=== PATIENT | female | born 1990 | race Caucasian/White ===

== ENCOUNTER → 2019-07-31 11:19 | Outpatient (CLI) | payer SELFPAY ==
[2016-08-07 05:40] VITALS: BMI 24.5
[2019-08-05 16:49] LABS: HPV APTIMA, High Risk Negative (Negative)
== END ==
PROVIDERS: Family Provider Family Medicine; PCP Family Medicine; Visit Provider Obstetrics & Gynecology
DX: Z12.4 Encounter for screening for malignant neoplasm of cervix (principal)
CPT/HCPCS: 87624; 88175; G0145

== ENCOUNTER → 2019-10-17 13:23 | Outpatient (CLI) | payer SELFPAY ==
[2019-10-17 19:35] LABS: Chlamydia Trachomatis by PCR Negative (Negative); Neisserai gonorrhoeae by PCR Negative (Negative); Probe Check PASS; Sample Adequacy Control PASS; Specimen Processing Control PASS
== END ==
PROVIDERS: Visit Provider Obstetrics & Gynecology
DX: Z11.3 Encounter for screening for infections with a predominantly sexual mode of transmission (principal)
CPT/HCPCS: 87491; 87591

== ENCOUNTER → 2019-11-20 10:37 | Outpatient (CLI) | payer SELFPAY ==
[2016-08-07 05:40] VITALS: BMI 24.5
[2019-11-20 10:58] LABS: Absolute Lymphocyte Count 1.97 X10^3/uL (0.83-4.51); Absolute Neutrophil Count 7.2 X10^3/uL (2.0-7.7); Basophil# 0.03 X10^3/uL; Basophil% 0.3 % (0-1); Eosinophil# 0.11 X10^3/uL; Eosinophils% 1.1 % (0-5); Hematocrit 36.1 % (37-47); Hemoglobin 12.7 g/dL (12.0-15.0); Lymphocyte # 1.97 X10^3/ul (4.0); Lymphocyte % 19.8 % (19-41); Mean Corp Hgb Conc 35.2 g/dL (32-36); Mean Corpuscular Hgb 32.7 pg (27.0-32.0); Mean Platelet Vol. 8.8 fl (6.2-12.0); Monocyte# 0.61 X10^3/uL; Monocyte% 6.1 % (0-10); NRBC Flagged by Analyzer 0 % (0-5); Neutrophil # 7.19 X10^3/uL (2.7-7.7); Neutrophil % 72.1 % (47-70); Platelet Count 262 K/mm3 (150-450); RBC Distribution Width CV 12.8 % (11.6-14.6); RBC Distribution Width SD 43.7 fl (35.1-43.9); Red Blood Count 3.88 M/mm3 (4.2-5.4)
[2019-11-20 11:04] LABS: Color, Urine Yellow (Yellow); Glucose, Dipstick Normal (Normal); Ketone-Dipstick Negative (Negative); Leukocyte Esterase-Dipstick 500 /ul (Negative); Nitrite-Dipstick Negative (Negative); Occult Blood-Urine Negative /ul (Negative); Protein-Dipstick Negative (Negative); Urine Bilirubin Dipstick Negative (Negative); Urine Clarity Sl. Cloudy (Clear); Urine Urobilinogen Normal (Normal)
[2019-11-20 11:11] LABS: Amphetamine Urine VISTA NEGATIVE (<1000 ng/mL); Barbiturate Urine VISTA NEGATIVE (< 200 ng/mL); Benzodiazepine Urine VISTA NEGATIVE (< 200 ng/mL); Cocaine Urine VISTA NEGATIVE (< 300 ng/mL); Ecstacy Urine VISTA NEGATIVE (< 500 ng/mL); Methadone Urine VISTA NEGATIVE (< 300 ng/mL); PCP Urine VISTA NEGATIVE (< 25 ng/mL); THC Urine VISTA NEGATIVE (< 50 ng/mL); Vista UDS pH Range 6
[2019-11-20 11:35] LABS: Thyroid Stim Hormone (TSH) 1.56 uIU/mL (0.358-3.74)
[2019-11-20 16:15] LABS: HIV - WCH Non-Reactive (Nonreactive); Hepatitis B Surface Antigen Non-Reactive (Nonreactive); Hepatitis C Antibody Non-Reactive (Nonreactive)
[2019-11-27 02:55] LABS: Prenatal RPR NONREACTIVE (NONREACTIVE)
== END ==
PROVIDERS: Visit Provider Obstetrics & Gynecology
DX: Z34.82 Encounter for supervision of other normal pregnancy, second trimester (principal)
CPT/HCPCS: 36415; 80307; 81002; 82306; 84443; 85025; 86703; 86762; 86803; 87340

== ENCOUNTER → 2020-01-06 13:53 | Outpatient (CLI) | payer SELFPAY ==
[2016-08-07 05:40] VITALS: BMI 24.5
[2020-01-06 13:59] LABS: Mucous, Urine 0 SEEN /hpf (<or=2+); Red Blood Cells-Urine 0 SEEN /hpf (0-5)
[2020-01-06 14:51] LABS: Color, Urine Yellow (Yellow); Glucose, Dipstick Normal (Normal); Ketone-Dipstick Negative (Negative); Leukocyte Esterase-Dipstick 500 /ul (Negative); Nitrite-Dipstick Negative (Negative); Occult Blood-Urine Negative /ul (Negative); Protein-Dipstick Negative (Negative); Urine Bilirubin Dipstick Negative (Negative); Urine Clarity Clear (Clear); Urine Urobilinogen Normal (Normal)
[2020-01-06 15:00] LABS: Bacteria 1+ /hpf (None Seen); Squamous Epithelial Cells - UA 0-5 SEEN /hpf (5-10); White Blood Cells 0-5 SEEN /hpf (0-5)
[2020-01-06 16:47] LABS: Chlamydia Trachomatis by PCR Negative (Negative); Neisserai gonorrhoeae by PCR Negative (Negative); Probe Check PASS; Sample Adequacy Control PASS; Specimen Processing Control PASS
== END ==
PROVIDERS: Referring Provider Obstetrics & Gynecology; Visit Provider Obstetrics & Gynecology
DX: Z34.82 Encounter for supervision of other normal pregnancy, second trimester (principal); Z87.440 Personal history of urinary (tract) infections
CPT/HCPCS: 81001; 87491; 87591

== ENCOUNTER → 2020-01-27 14:57 | Outpatient (CLI) | payer SELFPAY ==
[2016-08-07 05:40] VITALS: BMI 24.5
[2020-01-27 15:44] LABS: Hematocrit 34.8 % (37-47); Mean Corp Hgb Conc 34.5 g/dL (32-36); Mean Corpuscular Hgb 33.2 pg (27.0-32.0); Mean Corpuscular Volume 96.4 fL (81-99); Mean Platelet Vol. 9.4 fl (6.2-12.0); Platelet Count 264 K/mm3 (150-450); RBC Distribution Width CV 12.6 % (11.6-14.6); RBC Distribution Width SD 43.9 fl (35.1-43.9); Red Blood Count 3.61 M/mm3 (4.2-5.4); White Blood Count 12.3 K/mm3 (4.4-11.0)
[2020-01-27 15:54] LABS: Glucose Challenge Gest 1H 50g 119 mg/dL (70-140)
[2020-01-27 16:02] LABS: Vitamin D,25 Hydroxy 47.4 ng/mL
== END ==
PROVIDERS: Visit Provider Obstetrics & Gynecology
DX: Z34.82 Encounter for supervision of other normal pregnancy, second trimester (principal); E55.9 Vitamin D deficiency, unspecified
CPT/HCPCS: 82306; 82950; 85027

== ENCOUNTER 2020-04-07 21:31 | Inpatient (IN) | payer SELFPAY ==
[2016-08-07 05:40] VITALS: BMI 24.5
[2020-04-07 20:07] VITALS: BMI 24.4
[2020-04-07 20:09] VITALS: BP 106/71; PULSE 77
[2020-04-07] MEDS: Lactated Ringers 1,000 ML 999 ML IV (20:40)
[2020-04-07 21:05] LABS: Absolute Lymphocyte Count 1.71 X10^3/uL (0.83-4.51); Absolute Neutrophil Count 8.5 X10^3/uL (2.0-7.7); Basophil# 0.03 X10^3/uL; Basophil% 0.3 % (0-1); Eosinophil# 0.12 X10^3/uL; Eosinophils% 1.1 % (0-5); Hematocrit 34.6 % (37-47); Hemoglobin 12.1 g/dL (12.0-15.0); Lymphocyte # 1.71 X10^3/ul (4.0); Lymphocyte % 15.4 % (19-41); Mean Corpuscular Volume 97.2 fL (81-99); Mean Platelet Vol. 9.9 fl (6.2-12.0); Monocyte% 6.3 % (0-10); NRBC Flagged by Analyzer 0 % (0-5); Neutrophil # 8.47 X10^3/uL (2.7-7.7); Neutrophil % 76.1 % (47-70); Platelet Count 207 K/mm3 (150-450); RBC Distribution Width CV 12.6 % (11.6-14.6); RBC Distribution Width SD 45.1 fl (35.1-43.9); Red Blood Count 3.56 M/mm3 (4.2-5.4); White Blood Count 11.1 K/mm3 (4.4-11.0)
[2020-04-07 21:35] LABS: Group B Strep DNA By PCR Negative (Negative); Internal Control PASS; Probe Check PASS; Specimen Processing Control PASS
[2020-04-07 21:36] VITALS: BP 115/74; PULSE 81
[2020-04-07 21:47] VITALS: PULSE 79; O2SAT 98
[2020-04-07] MEDS: Sodium Citrate/Citric Acid 30 ML UDC PO (21:50)
--- NOTE | 2020-04-07 22:09 | HP.PCM_ITS ---
History and Physical Date of Admission: 04/07/20 OG ANTEPARTUM RECORD - HISTORY AND PHYSICAL (04/07/2020) Name: DEANA STONE History of This : This is a 29-year-old G3, P2 who presents to labor and delivery in active labor. She is approximately 35+ weeks gestation and had a prior section. OB Physician: OANH [place]'s Physician: Dr. Airam Dewitt ...................................................................... : 1990 Age: 29 Address: [address] [place] [address] Phone: H) [phone] Insurance Carrier: Emergency Contact: MILEY ALFREDO [phone] ...................................................................... Final SATHYA: 05/08/20 By Ultrasound: 10 weeks 6 days, 10 PARITY: (G-Total Pregnancies P-Fullterm,Premature,Induced AB,Spont AB, Ectopics, Multiple,Living) SATHYA CONFIRMATION: By LMP: 08/02/19 Initial Exam: 05/08/20 By First Ultrasound Exam: 05/08/20 Final SATHYA: 05/08/20 OB PROBLEM LIST: Cephalexin started for infected cut Declines msAFP and CF testing EPDS = 9 Mild MVP Prior C/S, plans repeat C/S at 39 weeks Recent new onset of migraine headaches ALLERGIES: NKDA MEDICATIONS: 27 mg-0.8 mg tablet One pill by mouth once a day promethazine 12.5 mg tablet 1 q 3 hrs prn nausea SOCIAL HISTORY: Smoking - Never Alcohol Use - denies drinking Diet - balanced Diet Lifestyle - low stress lifestyle and Exercise - regular 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 [place] Spouse-Sig Other Name - Miley Stone Spouse-Sig Other Occupation - [employer] Nurse Spouse-Sig Other Phone No - [phone] Children Name(s) - Rivera ALANIZ), PRIOR DELIVERY HISTORY DEL DATE GEST LAB WT LB WT OZ TYPE ANES LABOR TX 04 Feb 14 40 23 9 3 C-Sec Epidural yes 26 Sep 16 39 0 7 3 C-Sec Spinal No ANTEPARTUM FLOW CHART VISIT GE RTC FU F F IL U U DATE WK MD WKS HT PN HR M SS BP ED WT IL GL D EF ST __ ____ ___ __ __ ___ __ __ __ ___ __ __ __ ___ __ March SHM 1 34 V + + 100/58 0 156 tr - March SHM 2 33 V + + 102/72 0 154 tr - Feb SHM 2 31 ? + + 92/64 0 152 - - Feb 03 SHM 4 25 + + 90/62 0 146 ne 1+ 25 Jan 03 SHM 2 22 ? + + 116/64 0 144 - - Nov 26 SHM 2 + + 82/64 0 139 - - ANTEPARTUM NOTE(S): Apr 06 2020: increased discomforts Mar 23 2020: Reviewed FM, PTL, Tdap Mar 09 2020: see note Jan 27 2020: GCT drawn today Jan 06 2020: see note Nov 20 2019: see note COMPREHENSIVE ANTEPARTUM NOTE(S): Mar 23 2020: Discussed Tdap. Reviewed [facility] visitor policy due to COVID19 pandemic. Plans to start packing for hospital soon. Feels this baby is as big as her first one (>9lb). Desires to proceed with tubal sterilization at time of C/S. Reviewed failure rate, irreversibility, availability of reversible contraceptive alternatives and risk for tubal . Pt reports understanding. Mar 09 2020: Ira is here for a PNV. She is doing well, no compplaints or concerns expressed. Good FM. No edema. MK Jan 27 2020: Ira is here for visit. She is doing well, no complaints. Labs drawn today. Ok with spacing appt at this time. LMT Jan 06 2020: Ira is her for a PNV. She is doing well. She reports hot, painful, swollen veins in her right leg that started 4-6 weeks ago. Other than that she has no complaints. Good FM. Glucola given and reviewed for next appt. Waiting to find out gender of the baby. Urine - -. MK Jan 06 2020: Discussed sleep position, movement. Anatomy scan heart views completed today. AGA. hx RLE varicosities, si/sx clot or phlebitis reviewed. Nov 20 2019: Daena is here for a appt. She is feeling well. Some mild nausea. She thought she felt some small movements last night. Urine --. MK Nov 20 2019: Anatomy completed today, limited heart views, otherwise wnl. Mild headache intermittently and nausea. Nov 20 2019: Ira is here at 15 w 5 d for her NOB visit, she is a with an SATHYA of 05/08/2020. She and her , Miley, have two children at home, both of whom were delivered by C/S. Past history updated. Delivery by R C/S at [facility] is planned, and at this time she is undecided about feeding method. Ira is an established patient, and is aware of office practice patterns, including labs that will be collected today. Emergencies/danger signs to report, round ligament pain, contacting the office after hours, and common OTC medications approved/not approved for use during reviewed. She reports intermittent nausea, no vomiting. She takes an OTC vitamin that contained DHA and she states that she tolerates this well. Small frequent meals with protein included throughout the day and adequate water hydration of at least one gallon per 24 hours recommended. She has been taking Promethazine for nausea as prescribed, but does not feel that is has been working well. Discussed trying Vitamin B6 50 mg twice a day and Unisom at bedtime, she states that she may try this. Ira also shares that she has been getting migraine headaches, and that this is new for her; she states that she notes migraines mostly behind my right eye. She reports that she was started on Cephalexin yesterday for infected cut on her ankle (500 mg TID). Ira is a non-smoker, and denies use of drugs or ETOH. Genetic Screening form completed. MSAFP and CF testing declined, consent signed as such. States that she has experienced some depression and anxiety, but that she is doing well and that they have a family counselor that they see as needed and this is is helpful. EPDS = 9 today. Water and dietary needs in reinforced, as well as caloric needs, recommended weight gain, limiting empty calories and limiting caffeine to one cup a day. Printed guide for food safety during provided with review. Reviewed lifting restrictions, exercise guidelines, and Kegel exercises. Ira states that she understands all information provided during NOB visit, and has no questions following same. AW New Oct 21 2019: GC and chlamydia NEG EB Oct 17 2019: Ira is here for missed menses appt She relates LMP of 9/21, +UPT today in office, approx EDC 05/11/20. She is having mild nausea and would like Rx to have on hand. She plans R C/S as 2 prior C/S. Has colds at her house and reviewed OTC meds for all mild discomforts. Educational materials are provided and reviewed. Pap is current. LMT Oct 17 2019: as above. Plans travel to [place] next month. [facility] Jul 31 2019: Ira is here today for her annual appointment. Patient states that she has been doing well. SHe states that she has regular monthly menses except for last month she was about 9 days late. Patient states that she and are not using anything for control at this time as they are attempting . Patient is taking vitamin. Patient has h/o normal pap's with most recent pap in 2014. Patient is due for pap at today's visit. Patient completed depression screening with score of 2. Patient denies any other questions or concerns at this time. [facility] Jul 31 2019: as above. Plans trip to [place] in November. Continue running regularly, weight lifting. Reports single menses 9 days late with negative home UPTs. [facility] REVIEW OF SYSTEMS: GENERAL - Denies fever, or chills SKIN - Denies rash, new skin lesions, or change in moles EYES - Denies blurred vision, or change in visual acuity EARS - Denies ear pain, or difficulty hearing NOSE - Denies nasal congestion, discharge, or bleeding MOUTH - Denies sore throat, or difficulty swallowing NECK - Denies pain or swelling RESPIRATORY - Denies shortness of breath, cough, wheezing CARDIOVASCULAR - Denies palpitations, chest pain, orthopnea, PND, peripheral edema, syncope or claudication GASTROINTESTINAL - Denies nausea, vomiting, diarrhea, constipation, Denies abdominal pain, melena and or bright red blood GENITOURINARY - Denies dysuria, frequency of urination, urgency, or hesitancy MUSCULOSKELETAL - Denies joint or muscle pain, or back pain NEUROLOGICAL - Denies localized numbness, weakness, or tingling PSYCHIATRIC - Denies depression, anxiety, substance abuse or suicide attempts ENDOCRINE - Denies heat or cold intolerance, weight loss or gain, increasing thirst HEMATO-IMMUNOLOGIC - Denies easy bruising, bleeding, oral ulcerations or recurrent infections GENETICS SCREENING: Age 35+ years: No Thalassemia: No Neural Tube Defect: No Down Syndrome: No MOUNIKA-SACHS: No Sickle Cell Disease: No Hemophilia: No Musc. Dystrophy: No Cystic Fibrosis: No-declines screening [place] Chorea: No Mental Retardation: No Fragile X: No Other genetic: No Other defects: No SABs/still births: No Drugs since LMP: No INFECTION HISTORY: High risk AIDS: No High risk Hepatitis: No Exposed to TB: No Exposed to Herpes: No Rash/viral illness since LMP: No History of STD: No MENSTRUAL HISTORY: *Menses Amount/Duration: 3-4 daysMenses Regularity: regularFrequency: monthlyMenarche (Age Onset): 12* PAST SUMMARY: PARITY: 1. Total Pregnancies............ 3 2. Full Term Pregnancies........ 2 3. Premature.................... 0 4. Abortions - Induced.......... 0 5. Abortions - Spontaneous...... 0 6. Ectopics..................... 0 7. Multiple Births.............. 0 8. Living Children.............. 2 PAST #1: Date of :.................. 02/13/14 Gestation Weeks:................ 40 Length of labor(hours):......... 23 Sex:............................ M Weight-lbs:............... 9 Weight-oz:................ 3 Type of Delivery:............... C-Sect Type of Anesthesia:............. Epidural Place of Delivery:.............. [place] Treatment of Labor?:.... yes Comment: MACROSOMIA PAST #2: Date of :.................. 08/07/16 Gestation Weeks:................ 39 Length of labor(hours):......... 0 Sex:............................ F Weight-lbs:............... 7 Weight-oz:................ 3 Type of Delivery:............... C-Sect Type of Anesthesia:............. Spinal Place of Delivery:.............. [place] Treatment of Labor?:.... No Comment: PHYSICAL EXAMINATION General Appearence: 29 yo female in no acute distress Vital Signs: AF, VSS Heart: RRR without rubs or gallops Lungs: CTA x 2 Breasts: deferred Abdomen: gravid Pelvis: Cervix: 6/90 bag of water intact Presentation: cephalic Station: 0 station Fetus: Size: AGA Movement: present Heart: present Labs for : DEANA STONE since 08/12/2019 ORDER DATEIN DESCRIPTION VALUE UNITS RANGE A+ COMMENT VITAMIN D,25 HYDROXY 01/27/20 NOTE Original Ordering Provider: Lorraine Rosado VITAMIN D 25-OH 47.4 ng/mL Vitamin D 25(OH) Status Range Deficiency <20 ng/mL (50nmol/L) Insufficiency 20 - 30 ng/mL (50 - 75 nmol/L) Sufficiency 30 - 100 ng/mL (75 - 250 nmol/L) Toxicity >100 ng/mL (>250 nmol/L) Reviewed by [facility] GLUCOSE CHALLENGE GEST 1H 50G 01/27/20 NOTE Original Ordering Provider: Lorraine Rosado GLU GEST 50G 1H 119 mg/dL 70-140 Reviewed by [facility] CBC-COMPLETE BLOOD CNT NO DIFF 01/27/20 NOTE Original Ordering Provider: Lorraine Rosado WBC 12.3 K/mm3 4.4-11.0 H RBC 3.61 M/mm3 4.2-5.4 L HGB 12.0 g/dL 12.0-15.0 HCT 34.8 % 37-47 L MCV 96.4 fL 81-99 MCH 33.2 pg 27.0-32.0 H MCHC 34.5 g/dL 32-36 RDW CV 12.6 % 11.6-14.6 RDW SD 43.9 fl 35.1-43.9 PLT 264 K/mm3 150-450 MPV 9.4 fl 6.2-12.0 Reviewed by [facility] CT/NG WCH BY PCR 01/06/20 NOTE Original Ordering Provider: Lorraine Rosado CHLAM TRAC PCR Negative Negative NG BY PCR Negative Negative Reviewed by [facility] URINALYSIS, COMPLETE 01/06/20 NOTE Original Ordering Provider: Lorraine Rosado COLOR Yellow Yellow CLARITY Clear Clear GLUCOSE, UR Normal mg/dl Normal BILIRUBIN URINE Negative mg/dL Negative KETONE UR Negative mg/dl Negative SP.GR. DIPSTX 1.010 1.002-1.030 PH UR 7.0 5.0 - 8.0 w PROT DIPSTX Negative mg/dl Negative UROBILI Normal mg/dl Normal NITRITE UR Negative Negative OCCULT BLOOD-UR Negative /ul Negative LEUK ESTERASE 500 /ul Negative H WBC 0-5 SEEN /hpf 0-5 RBC-UA 0 SEEN /hpf 0-5 SQUAM EPI 0-5 SEEN /hpf 5-10 BACTERIA 1+ /hpf None Seen MUCUS, URINE 0 SEEN /hpf <OR=2+ Reviewed by LORRAINE RPR 11/20/19 NOTE Original Ordering Provider: Lorraine Rosado RPR NONREACTIVE NONREACTIVE Reviewed by JAM HEPATITIS C ANTIBODY 11/20/19 NOTE Original Ordering Provider: Lorraine Rosado HEPATITIS C AB Non-Reactive Nonreactive Non Reactive: < 0.8 Equivocal: >/= 0.8 to < 1.0 Reactive: >/= 1.0 The CDC recommends that a reactive/equivocal HCV antibody result be followed up by the HCV Nucleic Acid Amplification test (953100) Reviewed by LORRAINE HEPATITIS B SURFACE ANTIGEN 11/20/19 NOTE Original Ordering Provider: Lorraine Rosado HEPB SURFACE AG Non-Reactive Nonreactive w Reviewed by LORRAINE HIV - [facility] 11/20/19 NOTE Original Ordering Provider: Lorraine Rosado HIV - [facility] Non-Reactive Nonreactive Reviewed by LORRAINE RUBELLA IGG 11/20/19 NOTE Original Ordering Provider: Lorraine Rosado RUBELLA IGG 214.0 IU/mL Antibody results Interpretation of Immune Status < 5 IU/ml Presumed Non-immune 5 - < 10 IU/ml Equivocal > or = 10 IU/ml Presumed Immune Reviewed by LORRAINE VITAMIN D,25 HYDROXY 11/20/19 NOTE Original Ordering Provider: Lorraine Rosado VITAMIN D 25-OH 25.0 ng/mL 29.95-100.01 L Vitamin D 25(OH) Status Range Deficiency <20 ng/mL (50nmol/L) Insufficiency 20 - 30 ng/mL (50 - 75 nmol/L) Sufficiency 30 - 100 ng/mL (75 - 250 nmol/L) Toxicity >100 ng/mL (>250 nmol/L) Reviewed by LORRAINE T AND S-NO CHARGE W/PNP 11/20/19 Reason for Type AND Screen/Red Cells: Surgery? [facility]~[address] [place], [address]~ BLOOD TYPE GEL O POSITIVE N AB SCREEN GEL NEGATIVE N Reviewed by [facility] THYROID STIM HORMONE (TSH) 11/20/19 NOTE Original Ordering Provider: Lorraine Rosado TSH 1.56 uIU/mL 0.358-3.74 Reviewed by LORRAINE URINE DRUG SCREEN (VISTA) 11/20/19 NOTE Original Ordering Provider: Lorraine Rosado TO BE CONFIRMED CONFIRMATORY TESTING FOR ALL POSITIVE URINE DRUG SCREEN RESULTS WILL ONLY BE SENT OUT UPON PHYSICIAN ORDER. [facility] Urine Drug Screen methods provide only preliminary analytical test results. A more specific alternate chemical method must be used in order to obtain a confirmed analytical result. Gas chromatography/mass spectrometery (GC/MS) is the preferred confirmatory method. Clinical consideration and professional judgement should be applied to any drug of abuse test result, particularly when preliminary positive results are used. URINE TCA TESTING MUST BE ORDERED SEPARATELY. USE TEST [place]EM[place]: [place] UDS PH 6 AMPHETAMINES NEGATIVE <1000 ng/mL BARBITIURATES NEGATIVE < 200 ng/mL BENZODIAZIPINE NEGATIVE < 200 ng/mL COCAINE NEGATIVE < 300 ng/mL ECSTACY NEGATIVE < 500 ng/mL METHADONE NEGATIVE < 300 ng/mL OPIATES NEGATIVE < 300 ng/mL PCP NEGATIVE < 25 ng/mL THC NEGATIVE < 50 ng/mL Reviewed by LORRAINE URINALYSIS, ROUTINE (DIPSTICK) 11/20/19 NOTE Original Ordering Provider: Lorraine Rosado COLOR Yellow Yellow CLARITY Sl. Cloudy Clear GLUCOSE, UR Normal mg/dl Normal BILIRUBIN URINE Negative mg/dL Negative KETONE UR Negative mg/dl Negative SP.GR. DIPSTX 1.010 1.002-1.030 PH UR 7.0 5.0 - 8.0 PROT DIPSTX Negative mg/dl Negative UROBILI Normal mg/dl Normal NITRITE UR Negative Negative OCCULT BLOOD-UR Negative /ul Negative LEUK ESTERASE 500 /ul Negative H Reviewed by LORRAINE CBC W/DIFF, AUTOMATED 11/20/19 NOTE Original Ordering Provider: Lorraine Rosado WBC 10.0 K/mm3 4.4-11.0 RBC 3.88 M/mm3 4.2-5.4 L HGB 12.7 g/dL 12.0-15.0 HCT 36.1 % 37-47 L MCV 93.0 fL 81-99 MCH 32.7 pg 27.0-32.0 H w MCHC 35.2 g/dL 32-36 RDW CV 12.8 % 11.6-14.6 RDW SD 43.7 fl 35.1-43.9 PLT 262 K/mm3 150-450 MPV 8.8 fl 6.2-12.0 NEUT% 72.1 % 47-70 H LY% 19.8 % 19-41 MONO% 6.1 % 0-10 EO% 1.1 % 0-5 BASO% 0.3 % 0-1 IM GRAN % 0.600 % 0.0-0.9 IG% - Immature Granulocytes (promyelocytes, myelocytes and metamyelocytes) > 1% indicates that a LEFT SHIFT is Present. ABSOLUTE NEUT 7.2 X10 3/uL 2.0-7.7 ABSOLUTE LYMPH 1.97 X10 3/uL 0.83-4.51 NRBC, FLAGGED 0 % 0-[address]/SAROJ [facility] BY PCR 10/17/19 NOTE Original Ordering Provider: Lorraine GUSTAFSON TRA PCR Negative Negative NG BY PCR Negative Negative Reviewed by ELIZABETH Impression /Plan: 35+ week intrauterine in active labor for repeat C- section. Preparations in progress for delivery. Procedure Criteria Procedure Type: Essential Procedure Essential: Yes Criteria Statement: On 01/27/2020 the [facility] ([facility]) Public Order signed by [facility] Director Angelica Meyer M.D., regarding the Management of Non-Essential Surgeries and Procedures for the purpose of preserving Personal Protective Equipment (PPE) and critical hospital capacity and resources within [place] went into effect as of 01/28/2020 at 5:00PM. According to the [facility] Public Order: This action will remain in full force and effect until the State of Emergency declared by the Governor no longer exists or the Director of the [facility] rescinds or modifies this Order. This [facility] order stated all non-essential or elective surgeries and procedures that utilize PPE should be delayed unless there is undue risk to the current or future health of a patient. After reviewing the aforementioned [facility] Public Order and the patient's clinical case, I have determined that the scheduled procedure meets the criteria to go forward. Risk to Patient if Procedure Delayed: Risk of rapidly worsening to severe symptoms if delayed
--- NOTE | 2020-04-07 22:12 | OP.PCM_ITS ---
Delivery Classification: LUCHO Final SATHYA: 05/08/20 Final SATHYA Source: US <20 weeks Gestational age: 35 Weeks and 5 Days doctor who attended delivery (if requested by OB): Martha Sam - 35+ wks gestation saddle and harness maker: Shelia Fox Type of Anesthesia:: Spinal - With Duramorph Implants Used: None Date of Procedure: 04/07/20 Pre-Operative Diagnosis: 35+ Week Intrauterine in Labor; Prior Section; Desires Permanent Sterilization Post-Operative Diagnosis: 35+ Week Intrauterine in Labor; Prior Section; Desires Permanent Sterilization Description of Procedure: Surgeon: Sammy Najera MD, FACOG Anesthesia: Mariola Crook MD Anesthesia: Spinal with Duramorph Procedure: Repeat Low Transverse Cervical Caesarean Section And Bilateral Tubal Occlusion with Filshie Clips Findings: Viable male with Apgars of 6/8 in occiput anterior presentation with clear amniotic fluid and normal three-vessel placenta. Indication: This is a 29-year-old who presents in active labor for her third C- section at 35+ weeks gestation. care has otherwise been uneventful. The patient has been counseled regarding the risk and indications of this procedure including the possibility of bleeding infection and injury to surrounding structures such as bowel bladder. All questions were answered. Procedure: Patient was taken to the operating room where after spinal anesthesia was placed, the patient was prepped and draped in usual sterile fashion and a Read catheter was placed. The abdomen was entered through the patient's prior Pfannenstiel incision and peritoneum was entered bluntly. After developing a bladder flap on the lower uterine segment a low transverse incision was made on the uterus and head was easily delivered onto the operative field the nose mouth and oropharynx were bulb suctioned. Subsequently a viable male infant was born with Apgars of 6/8. The was noted to cry move all extremities vigorously on the operative field. The umbilical cord was doubly clamped and ligated and infant handed to the nursery personnel who were present for the delivery. Placenta was delivered and noted to be 3 vessels and normal. Uterus was exteriorized and remaining placental tissue was removed. The uterus was then closed in 2 layers first with running locked 0 Vicryl suture followed by a second imbricating layer with 0 Vicryl suture. 0 Vicryl suture was then used in a horizontal mattress interrupted fashion to affect final hemostasis of the uterine incision line. Normal fallopian tubes and ovaries were visualized and Filshie clips clips were placed on each fallopian tube approximately 2 cm from the uterine fundus. The uterus was returned to the pelvis. Hemostasis was noted and rectus abdominis muscles were reapproximated in the midline with interrupted Number 0 Vicryl suture in a horizontal mattress fashion. Fascia was closed with running Number 1 PDS Strata fix suture. Subcutaneous tissue was irrigated with copious amouts of saline solution and then closed with running 3- 0 Vicryl suture. Skin was closed with 4-0 monocryl suture in a running subcuticular fashion. Steri strips, telfa, and tape were placed across the incision. The patient tolerated the procedure well and was taken to the recovery room in satisfactory condition. Sponge, needle, and instrument counts were all reportedly correct. EBL was 500 cc. Ancef 2 gms IV was given prior to the procedure. Spicemen to Pathology: None Complications: None Amniotic Fluid Description: Clear Placenta Disposition: [facility] Specimen(s) sent to pathology: None Drain: Read to straight drain Fluids Replaced: Crystalloid Cord Entanglement: None Cord Vessel Description: 3 Vessels Esitmated Blood Loss (ml): 500 cc Gender: Male (1 minute): 6 (5 minute): 8 Antibiotic Given: Ancef 2 grams IV x1 Pt instructed on risks of surgery: Bleeding, Infection, Permanency, Injury to surrounding structure(s) including bowel and bladder - Admit VTE Documentation VTE Present on Admission: Yes VTE Mechan Device Prophylaxis: SCD's VTE Pharm Prophylaxis ordered?: No Reason prophylaxis not ordered:: Treatment Not Indicated
[2020-04-07] MEDS: Cefazolin 2 GM in 0.9% Normal Saline 100 ML IV (22:22)
--- NOTE | 2020-04-07 22:26 | DCINST_ITS ---
<Sammy Najera - Last Filed: 04/07/20 22:26> Discharge Diet: No Restrictions Discharge Activity: May not drive while taking narcotic pain medications., May Shower, May Take a Tub Bath May resume sexual activity in: 4-6 weeks Lifting Restrictions: 20 pounds Additional Activity Instructions:: Nothing in the vagina for 4-6 weeks. You may return to work/school in 6 weeks. Call your doctor if your incision/area has: Continuous Slow Oozing, Sudden Increased Bleeding, Increased Pain/ Swelling, Increased Redness, Foul Smelling Discharge Call your doctor if you observe: Inability to urinate, Inability to have a bowel movement, Using more than one pad per hour Additional Instructions: If you experience any of the following, contact your healthcare provider. * Bleeding that soaks a pad every hour for 2 hours * Fever 100.4 or higher * Unrelieved incision or abdominal pain * Swelling, redness, discharge or bleeding from your incision or episiotomy site * Your incision begins to separate * Problems urinating (including inability to urinate or burning while urinating). * Visual changes * Severe headache * Flu-like symptoms * Pain or redness in one of both of your breasts * Pain, warmth, tenderness or swelling in your legs, especially the calf area * Frequent nausea and vomiting * Symptoms of depression or anxiety If you experience any of the following, call 911 or go to the nearest Emergency Room. * Chest pain * Problems breathing * Seizure activity * Partial or complete paralysis of a body part, slurred speech, weakness or drooping of the face, or a sudden inability to walk or hold your balance Allergies/Adverse Reactions: Allergies No Known Allergies Allergy (Verified 04/07/20 21:13) Medications to take at Discharge Vits [Prenatabs FA ] 1 tablet PO DAILY 12/19/13 Docusate Sodium [Colace] 100 mg PO BID PRN PRN #60 cap 04/07/20 Oxycodone [Oxyir] 5 mg PO Q6H PRN PRN 7 Days #20 tab 04/07/20 Cephalexin [Keflex] 500 mg PO Q6 7 Days #28 cap 04/09/20 The following prescriptions were given: Docusate Sodium [Colace] 100 mg PO BID PRN PRN #60 cap PRN Reason: Constipation Transmission Status: [facility] Cephalexin [Keflex] 500 mg PO Q6 7 Days #28 cap Transmission Status: [facility] Oxycodone [Oxyir] 5 mg PO Q6H PRN PRN 7 Days #20 tab PRN Reason: Pain Score 6-10/10 Transmission Status: [facility] Follow-Up: Call to make an appointment with your doctor for an incision check in 1-2 weeks. You will also need a 6 week post- follow up appointment. Test results from this visit will be discussed in further detail at your follow- up appointment, if applicable. Please Follow Up With: Sammy Najera MD - [phone] When: Call to make an appointment for an incision check in 2 weeks. Primary Care Physician: Care Physician,No Primary [Primary Care Provider] - <Dianne Gray - Last Filed: 04/09/20 08:17> Additional Instructions: If you experience any of the following, contact your healthcare provider. * Bleeding that soaks a pad every hour for 2 hours * Fever 100.4 or higher * Unrelieved incision or abdominal pain * Swelling, redness, discharge or bleeding from your incision or episiotomy site * Your incision begins to separate * Problems urinating (including inability to urinate or burning while urinating). * Visual changes * Severe headache * Flu-like symptoms * Pain or redness in one of both of your breasts * Pain, warmth, tenderness or swelling in your legs, especially the calf area * Frequent nausea and vomiting * Symptoms of depression or anxiety If you experience any of the following, call 911 or go to the nearest Emergency Room. * Chest pain * Problems breathing * Seizure activity * Partial or complete paralysis of a body part, slurred speech, weakness or drooping of the face, or a sudden inability to walk or hold your balance Follow-Up: Call to make an appointment with your doctor for an incision check in 1-2 weeks. You will also need a 6 week post- follow up appointment. Test results from this visit will be discussed in further detail at your follow- up appointment, if applicable.
[2020-04-07 23:34] VITALS: BP 107/70; BP 115/74; PULSE 75; RESP 19; TEMP 36.1; O2SAT 95
[2020-04-07] MEDS: Oxytocin 30 units/NS 500 ml 30 UNITS/500 ML IV.SOLN 167 UNITS IV (23:34)
[2020-04-07] MEDS: Lactated Ringers 1,000 ML 100 ML IV (23:35)
[2020-04-07 23:49] VITALS: BP 111/72; BP 115/74; PULSE 71; RESP 18; TEMP 36.3; O2SAT 97
[2020-04-08] VITALS (21 sets, daily range): BP systolic 91–119; BP diastolic 54–76; PULSE 59–74; RESP 14–18; TEMP 36.2–37; O2SAT 97–100
[2020-04-08] MEDS: Ketorolac 30 MG/ML Syringe IV ×4 (05:38→23:29)
[2020-04-08] MEDS: DiphenhydrAMINE 25 MG Capsule PO (05:44)
[2020-04-08] MEDS: Cefazolin 1 GM/50 ML BAG IV ×3 (07:40→22:58)
[2020-04-08] MEDS: Senna/Docusate Sodium 1 Tablet PO (07:58)
[2020-04-08] MEDS: Acetaminophen 500 MG Tablet 1000 MG PO (07:58)
--- NOTE | 2020-04-08 08:18 | PCM.PN.OB ---
Subjective: Patient without complaints. Tolerating diet well. Denies flatus. Right breast is less tender than last evening when she was admitted. Minimal vaginal bleeding. Pain well controlled. Objective: Good urine output. Hemoglobin pending this morning. - Physical Exam Vitals/I&O's: Vital Signs Temp Pulse Resp BP Pulse Ox 97.5 F L 67 16 102/69 100 04/08/20 05:47 04/08/20 06:13 04/08/20 06:13 04/08/20 05:47 04/08/20 06:13 Oxygen Delivery Method Room Air Weight: 156 lb 3.2 oz Body Mass Index (BMI) 24.4 Intake and Output for Last 24 Hours 04/06/20 04/07/20 04/08/20 23:59 23:59 23:59 Intake Total 110 / 110 1550 / 1550 Output Total 400 / 400 600 / 600 Balance -290 / -290 950 / 950 Microbiology Past 72 Hours 04/07/20 20:50 Mucosa - Nasopharyngeal Coronavirus COVID-19 PCR - Final Laboratory Results 04/07/20 20:15: Group B Strep DNA Negative, Specimen Comment Not Reportable 04/07/20 20:40: WBC 11.1 H, RBC 3.56 L, Hgb 12.1, Hct 34.6 L, MCV 97.2, MCH 34.0 H, MCHC 35.0, RDW Std Deviation 45.1 H, RDW Coeff of Con 12.6, Plt Count 207, MPV 9.9, Immature Gran % (Auto) 0.800, Neut % (Auto) 76.1 H, Lymph % (Auto) 15.4 L, [place] % (Auto) 6.3, Eos % (Auto) 1.1, Baso % (Auto) 0.3, Absolute Neuts (auto) 8.5 H, Absolute Lymphs (auto) 1.71, Nucleated RBC % 0 04/07/20 20:40: Blood Type O POSITIVE, Antibody Screen NEGATIVE Current Medications Acetaminophen (Tylenol) 1,000 mg PO Q8H PRN PRN PRN Reason: Pain Score 1-3/10 Last Admin: 04/08/20 07:58 Dose: 1,000 mg Documented by: Bisacodyl (Dulcolax) 10 mg RECTAL UD PRN PRN Reason: If no BM Diphenhydramine HCl (Benadryl) 25 mg PO Q6H PRN PRN PRN Reason: ITCHING Stop: 04/09/20 00:00 Last Admin: 04/08/20 05:44 Dose: 25 mg Documented by: Hydrocortisone (Hytone) 1 applic TOPICAL TID PRN PRN; Protocol PRN Reason: Discomfort Lactated Ringer's () 1,000 mls @ 100 mls/hr IV .Q10H [facility] Last Admin: 04/08/20 01:13 Dose: Not Given Documented by: Cefazolin Sodium () 1 gm in 50 mls @ 150 mls/hr IV Q8H [facility] Stop: 04/08/20 15:49 Last Admin: 04/08/20 07:40 Dose: 150 mls/hr Documented by: Naloxone HCl 4 mg/ Dextrose 504 mls @ 0 mls/hr IV .Q0M PRN; Protocol PRN Reason: Respiratory depression Ibuprofen (Motrin) 600 mg PO Q6H PRN PRN PRN Reason: Pain Score 1-3/10 Ketorolac Tromethamine (Toradol (Bkc)) 30 mg IV Q6H [facility] Stop: 04/09/20 23:31 Last Admin: 04/08/20 05:38 Dose: 30 mg Documented by: Measles/Mumps/Rubella Vaccine Live (M-M-R Ii) 0.5 ml SC .ONCE ONE Stop: 04/08/20 10:01 Last Admin: 04/08/20 01:14 Dose: Not Given Documented by: Methylergonovine Maleate (Methergine) 0.2 mg IM X1 PRN PRN Reason: Uterine Atony Nalbuphine HCl (Nubain) 5 mg IV Q3H PRN PRN PRN Reason: ITCHING Stop: 04/09/20 00:00 Naloxone HCl (Narcan) 0.02 mg IV Q1M PRN PRN Reason: RR <10 and pt unresponsive Ondansetron HCl (Zofran) 4 mg IV Q4H PRN PRN PRN Reason: Nausea Oxycodone HCl (Oxyir) 5 - 10 mg PO Q4H PRN PRN PRN Reason: Pain Score 4-10/10 Prochlorperazine Edisylate (Compazine Iv) 10 mg IV Q6H PRN PRN PRN Reason: NAUSEA Senna/Docusate Sodium (Senokot-S, Katerine-Colace) 1 - 2 tablet PO DAILY PRN PRN Reason: Constipation Last Admin: 04/08/20 07:58 Dose: 2 tablet Documented by: Simethicone (Mylicon) 80 mg PO PCHS PRN PRN Reason: Indigestion/stomach pain Sodium Chloride () 5 - 15 ml IV UD PRN PRN Reason: SALINE FLUSH Medical Necessity - Tobacco Use Smoking Status: Never smoker Assessment/Plan All Active Problems Delivered by section (Acute) 39 weeks gestation of (Acute) Doing well postoperative day #1 status post repeat and tubal. Will extend antibiotics an additional 24 hours. If tenderness in right breast does not improve within the next 1 to 2 days, will need to consult general surgery for their opinion.
--- NOTE | 2020-04-08 10:01 | NURSING ---
0900 IBCLC assessment. Patient pumping on the left side with electric pump, using [place] on the right side. Patient has a red possible boil on the Right nipple. Mother states yesterday the entire breast and areola was sore but today seems a little better. Patient wants to be able to pump the right side as well, is going to pump the right for 10 min on very low suction. Dr murray and RN taking care of the patient today states he wants it monitored close and if it is not getting better will consult surgery to take a look at the area.
[2020-04-08] MEDS: 0.9% Saline Lock 10 ML Syringe IV ×6 (11:27→23:29)
--- NOTE | 2020-04-08 14:09 | NURSING ---
Addendum entered by Esther Pozo 04/08/20 15:36: To clarify- rt nipple is edematous and reddened, breast area outside of the nipple and areola is not. Original Note: Right nipple noted to have an area approx 0.5cm diameter that is darkened, brown to black in color. Pt states she had a boil for last few days. Right breast appears slightly larger than left breast. No bleeding or discharge noted, skin around this area appears intact. no redness or warmth noted in right breast. Dr. Najera here this morning and examined. Plan is to continue antibiotic x 1 more dose. Pt states entire breast was tender yesterday, but that has improved today.
[2020-04-08 19:21] LABS: Hematocrit 33.6 % (37-47); Hemoglobin 11.4 g/dL (12.0-15.0); Mean Corp Hgb Conc 33.9 g/dL (32-36); Mean Corpuscular Hgb 33.5 pg (27.0-32.0); Mean Corpuscular Volume 98.8 fL (81-99); Mean Platelet Vol. 9.8 fl (6.2-12.0); Platelet Count 196 K/mm3 (150-450); RBC Distribution Width CV 12.9 % (11.6-14.6); RBC Distribution Width SD 46.2 fl (35.1-43.9); White Blood Count 11.6 K/mm3 (4.4-11.0)
--- NOTE | 2020-04-08 23:05 | NURSING ---
bedside report receieved from erhoads. this rn to assume care of pt at this time
[2020-04-09 03:38] VITALS: BP 100/67; PULSE 71; RESP 14; TEMP 36.4
[2020-04-09] MEDS: 0.9% Saline Lock 10 ML Syringe IV ×2 (05:18→05:59)
[2020-04-09] MEDS: Cefazolin 1 GM/50 ML BAG IV (05:23)
[2020-04-09] MEDS: oxyCODONE 5 MG Tablet PO (06:05)
--- NOTE | 2020-04-09 08:17 | PCM.PN.OB ---
Subjective: Feeling okay with mild pain, but controlled with Motrin and Tylenol. Wants oxy to go home with. Son got transferred to [place] last night, so she is wanting discharge now. Reports +flatus. Denies heavy bleeding, pain or urinary issues. Has been up in her room fine. Would like to follow up with general surgery outpatient for her nipple infection. Objective: VSS. Fundus u/2, firm and midline. Incision with steri strips CDI without erythema or edema. Right nipple continues to have black eschar on tip with edema and erythema. Not able to express colostrum from that side. - Physical Exam Vitals/I&O's: Vital Signs Temp Pulse Resp BP Pulse Ox 97.6 F L 71 14 100/67 100 04/09/20 03:38 04/09/20 03:38 04/09/20 03:38 04/09/20 03:38 04/08/20 21:30 Oxygen Delivery Method Room Air Weight: 70.851 kg Body Mass Index (BMI) 24.4 Intake and Output for Last 24 Hours 04/07/20 04/08/20 04/09/20 23:59 23:59 23:59 Intake Total 110 / 110 3700 / 3700 950 / 950 Output Total 400 / 400 2150 / 2150 Balance -290 / -290 1550 / 1550 950 / 950 General: Alert, Oriented x3, Cooperative HEENT: Atraumatic, PERRLA, EOMI, Normocephalic Neck: Supple, No JVD, Negative Carotid Bruits Lungs: Clear to auscultation, Normal air movement Cardiovascular: Regular rate, No murmurs Abdomen: Bowel Sounds Present, Soft, Non Tender, - - fundus u/2, incision with steri strips Extremities: No edema, Capillary Refill Less than 3 Seconds Skin: No rashes, No breakdown, - - right nipple infection Musculoskeletal: No Tenderness to Palpation of Joints or Extremities Neurological: Cranial nerves II-XII grossly intact Psych/Mental Status: Normal Affect, Appropriate Microbiology Past 72 Hours 04/07/20 20:50 Mucosa - Nasopharyngeal Coronavirus COVID-19 PCR - Final Laboratory Results 04/08/20 18:55: WBC 11.6 H, RBC 3.40 L, Hgb 11.4 L, Hct 33.6 L, MCV 98.8, MCH 33.5 H, MCHC 33.9, RDW Std Deviation 46.2 H, RDW Coeff of Con 12.9, Plt Count 196, MPV 9.8 Current Medications Acetaminophen (Tylenol) 1,000 mg PO Q8H PRN PRN PRN Reason: Pain Score 1-3/10 Last Admin: 04/08/20 07:58 Dose: 1,000 mg Documented by: Bisacodyl (Dulcolax) 10 mg RECTAL UD PRN PRN Reason: If no BM Hydrocortisone (Hytone) 1 applic TOPICAL TID PRN PRN; Protocol PRN Reason: Discomfort Naloxone HCl 4 mg/ Dextrose 504 mls @ 0 mls/hr IV .Q0M PRN; Protocol PRN Reason: Respiratory depression Cefazolin Sodium () 1 gm in 50 mls @ 100 mls/hr IV Q8 [facility] Stop: 04/09/20 12:00 Last Infusion: 04/09/20 05:53 Dose: Infused Documented by: Ibuprofen (Motrin) 600 mg PO Q6H PRN PRN PRN Reason: Pain Score 1-3/10 Ketorolac Tromethamine (Toradol (Bkc)) 30 mg IV Q6H [facility] Stop: 04/09/20 23:31 Last Admin: 04/09/20 05:48 Dose: Not Given Documented by: Methylergonovine Maleate (Methergine) 0.2 mg IM X1 PRN PRN Reason: Uterine Atony Naloxone HCl (Narcan) 0.02 mg IV Q1M PRN PRN Reason: RR <10 and pt unresponsive Ondansetron HCl (Zofran) 4 mg IV Q4H PRN PRN PRN Reason: Nausea Oxycodone HCl (Oxyir) 5 - 10 mg PO Q4H PRN PRN PRN Reason: Pain Score 4-10/10 Last Admin: 04/09/20 06:05 Dose: 10 mg Documented by: Prochlorperazine Edisylate (Compazine Iv) 10 mg IV Q6H PRN PRN PRN Reason: NAUSEA Senna/Docusate Sodium (Senokot-S, Katerine-Colace) 1 - 2 tablet PO DAILY PRN PRN Reason: Constipation Last Admin: 04/08/20 07:58 Dose: 2 tablet Documented by: Simethicone (Mylicon) 80 mg PO PCHS PRN PRN Reason: Indigestion/stomach pain Last Admin: 04/09/20 01:40 Dose: 80 mg Documented by: Sodium Chloride () 5 - 15 ml IV UD PRN PRN Reason: SALINE FLUSH Last Admin: 04/09/20 05:59 Dose: 10 ml Documented by: Medical Necessity - Tobacco Use Smoking Status: Never smoker Assessment/Plan All Active Problems Delivered by section (Acute) 39 weeks gestation of (Acute) A/P: POD #2 from repeat Pain well controlled Normal course Infant to [place] for respiratory help mother with difficulties d/t a right nipple infection that started approximately 4-5 days ago. After assessment by Dr. Chavez, will send in Keflex Rx QID. Instructed in 48 hours if not feeling better to call for change in antibiotic. To not give breast milk from the right breast x 1 week and states understanding. Will have OB office work on consult for Dr. Aguilar's group and call her. Okay to discharge with 1-2 week incision check with Dr. Najera
[2020-04-09 09:30] VITALS: BP 98/67; PULSE 84; RESP 20; TEMP 36.8
== END 2020-04-09 09:50 | disposition home or self-care (01) | DRG 783 ==
LOC: WPOUT 21:31 → WP 21:31
PROVIDERS: Admitting Provider Obstetrics & Gynecology; Visit Provider Obstetrics & Gynecology
DX: O65.5 Obstructed labor due to abnormality of maternal pelvic organs (principal); O60.14X0 Preterm labor third trimester with preterm delivery third trimester, not applicable or unspecified; O34.211 Maternal care for low transverse scar from previous cesarean delivery; Z3A.35 35 weeks gestation of pregnancy; Z37.0 Single live birth; Z30.2 Encounter for sterilization; Z86.72 Personal history of thrombophlebitis; O36.63X0 Maternal care for excessive fetal growth, third trimester, not applicable or unspecified
CPT/HCPCS: 59025; 59050; 85025; 85027; 86850; 86900; 86901; 87081; 87635; 87653; 99218; G2023; J7120; A4216; G0378; U0004

== ENCOUNTER → 2020-04-17 09:08 | Outpatient (CLI) | payer SELFPAY ==
[2020-04-07 20:07] VITALS: BMI 24.4
[2020-04-17 10:48] LABS: M R Staph aureus DNA By PCR Negative (Negative); Probe Check PASS; Specimen Processing Control PASS
[2020-04-18 07:58] LABS: Staph aureus DNA By PCR NEGATIVE (Negative)
[2020-04-23 14:08] LABS: HSV 1 By PCR Positive (Negative)
[2020-04-24 11:20] LABS: HSV 2 By PCR Negative (Negative)
== END ==
PROVIDERS: Referring Provider Obstetrics & Gynecology; Visit Provider Obstetrics & Gynecology
DX: L02.215 Cutaneous abscess of perineum (principal); N76.4 Abscess of vulva; A60.04 Herpesviral vulvovaginitis
CPT/HCPCS: 87529; 87640

== ENCOUNTER → 2022-05-10 | Outpatient (CLI) | payer SELFPAY ==
[2022-05-10 12:46] LABS: Hemoglobin 12.5 g/dL (12.0-15.0); Mean Corp Hgb Conc 32.9 g/dL (32-36); Mean Corpuscular Hgb 30.3 pg (27.0-32.0); Mean Corpuscular Volume 92.2 fL (81-99); Mean Platelet Vol. 9.6 fl (6.2-12.0); Platelet Count 321 K/mm3 (150-450); RBC Distribution Width CV 13.2 % (11.6-14.6); RBC Distribution Width SD 45.1 fl (35.1-43.9); Red Blood Count 4.12 M/mm3 (4.2-5.4); White Blood Count 6.6 K/mm3 (4.4-11.0)
[2022-05-10 13:05] LABS: T3 Total - Triiodothyronine 0.87 ng/mL (0.6-1.81)
[2022-05-10 13:11] LABS: Estradiol 80.6 pg/mL; Free T3 2.3 pg/mL (2.18-3.98); T4 Free Direct 0.83 ng/dL (0.76-1.46); Thyroid Stim Hormone (TSH) 1.74 uIU/mL (0.358-3.74)
== END | disposition home or self-care (01) ==
PROVIDERS: Visit Provider Obstetrics & Gynecology
DX: Z12.4 Encounter for screening for malignant neoplasm of cervix (principal); N92.6 Irregular menstruation, unspecified; E28.8 Other ovarian dysfunction; E03.9 Hypothyroidism, unspecified
CPT/HCPCS: 36415; 82670; 84144; 84270; 84403; 84439; 84443; 84480; 84481; 85027; 88175; G0145